=== PATIENT | male | born 1985 | race African-American/Black ===

== ENCOUNTER 2019-11-12 08:55 | Inpatient (IN) | payer OTHER ==
[2019-11-12 09:39] LABS: #Basophils 0.1 thou/uL (0.0-0.2); #Lymphocytes 1.7 thou/uL (1.20-3.40); #Monocytes 0.8 thou/uL (0.11-0.59); #Neutrophils 3.7 thou/uL (1.40-6.50); %Basophils 0.9 % (0.0-1.0); %Eosinophils 0.3 % (0.0-10.0); %Lymphocytes 27.6 % (21.0-51.0); %Monocytes 12.5 % (0.0-10.0); %Neutrophils 58.7 % (42.0-75.0); Hemoglobin 14.9 g/dL (14.0-18.0); Mean Corpuscular HGB CONC 32.8 g/dL (32.0-36.0); Mean Corpuscular Hemoglobin 30.9 pg (27.0-31.0); Mean Corpuscular Volume 94.2 fL (78.0-98.0); Mean Platelet Volume 8.4 fL (7.4-10.4); Platelet Count 181 thou/uL (130-400); RBC Distribution Width 11.6 % (11.5-14.5); Red Blood Cell (RBC) Count 4.83 mill/uL (4.70-6.10); White Blood Cell (WBC) Count 6.3 thou/uL (4.8-10.8)
[2019-11-12 10:02] LABS: ALT (SGPT) 26 U/L (8-55); AST (SGOT) 59 U/L (5-34); Acetaminophen Less than 6.0 mcg/mL (10.0-30.0); Albumin 4.7 g/dL (3.5-5.0); Alcohol Less than 10 mg/dL (Less than 10); Alkaline Phosphatase 68 U/L (40-110); Anion Gap 13 mmol/L (10-20); BUN (Urea Nitrogen) 16 mg/dL (8.9-20.6); Bilirubin, Total 0.7 mg/dL (0.2-1.2); CK (CPK) 3124 U/L (30-200); Calc. Creatinine Clearance 0 mL/min (70-130); Calcium 9.5 mg/dL (7.8-10.44); Carbon Dioxide 27 mmol/L (22-29); Chloride 104 mmol/L (98-107); Estimated GFR-MDRD 83; Globulin 2.9 g/dL (2.4-3.5); Glucose 88 mg/dL (70-105); Potassium 3.9 mmol/L (3.5-5.1); Protein, Total 7.6 g/dL (6.0-8.3); Salicylate Less than 8.0 mg/dL (15.0-30.0); Sodium 140 mmol/L (136-145)
[2019-11-12 12:38] LABS: Bacteria/HPF None Seen HPF (None Seen); Bilirubin Negative (Negative); Blood, Urine Negative (Negative); Clarity Clear (Clear); Glucose, Urine (Dipstick) Normal (Negative); Ketone, Urine 40 mg/dL (Negative); Leukocyte Negative Leu/uL (Negative); Nitrite Negative (Negative); Protein, Urine (Dipstick) 30 mg/dL (Neg-Trace); RBC/HPF 0-3 HPF (0-3); Specific Gravity, Urine 1.035 (1.002-1.036); Squamous Epithelial 0-3 HPF (0-3); WBC/HPF 0-3 HPF (0-3)
[2019-11-12 12:46] LABS: Amphetamine Not Detected (NotDetected); Barbiturates Screen Not Detected (NotDetected); Benzodiazepine Screen Not Detected (NotDetected); Cocaine Metabolite Screen Not Detected (NotDetected); Medtox Control Line Valid? VALID (VALID); Medtox Reader # READER 1; Methadone Not Detected (NotDetected); Methamphetamine Not Detected (NotDetected); Opiate Screen Not Detected (NotDetected); Oxycodone Screen Not Detected (NotDetected); Phencyclidine (PCP) Not Detected (NotDetected); THC/Cannabinoid Screen Not Detected (NotDetected); Tricyclic Screen Not Detected (NotDetected)
[2019-11-12] MEDS ORDERED: Ibuprofen 200 MG TAB ONE (15:12)
[2019-11-12] MEDS ORDERED: Ibuprofen 100 MG/5 ML UDCUP ONE (15:12)
[2019-11-12 22:27] LABS: Anion Gap 8 mmol/L (10-20); BUN (Urea Nitrogen) 13 mg/dL (8.9-20.6); CK (CPK) 3196 U/L (30-200); Calc. Creatinine Clearance 0 mL/min (70-130); Calcium 7.5 mg/dL (7.8-10.44); Carbon Dioxide 25 mmol/L (22-29); Chloride 112 mmol/L (98-107); Estimated GFR-MDRD Greater than 90; Glucose 124 mg/dL (70-105); Potassium 4.4 mmol/L (3.5-5.1); Sodium 141 mmol/L (136-145)
--- NOTE | 2019-11-12 23:52 | HP ---
REASON FOR ADMISSION: Confusion. HISTORY OF PRESENT ILLNESS: This is a 34-year-old male patient who has history of psychiatric illness, was found erratically shopping at [employer]. He appears to be confused. He was also shoplifting. He was brought to the emergency room for medical evaluation and attempt was made to contact [facility] to take him, but his labs were found to be abnormal. His CK was elevated. He is being admitted for further monitoring. The patient is currently in the ER and he appears to be very comfortable. He knows the year. He knows that he is in the hospital, but then he answers more specific questions somewhat inappropriately, but he denies any distress. No chest pain. No shortness of breath. PAST MEDICAL HISTORY: As per records, positive for psychiatric illness, but otherwise he is a very poor historian and unable to give me more information. SOCIAL HISTORY: Documented that he drinks on a daily basis, but does not use drugs. He does smoke cigarettes. FAMILY HISTORY: I am to obtain due to his poor being a poor historian. REVIEW OF SYSTEMS: Unable to obtain due to him being a poor historian. PHYSICAL EXAMINATION: GENERAL: Awake, alert, oriented, does not appear in distress. VITAL SIGNS: His blood pressure is 128/79, heart rate of 90, temperature is 98.9, saturating 98% on room air. HEENT: Head is nontraumatic, normocephalic. Pupils equal, reactive. Extraocular movements intact. Nonicteric sclerae. Well-injected conjunctivae. Oral mucosa normal. Nasal mucosa normal. NECK: Supple. No adenopathy. No murmur. Thyroid is not palpable. Trachea is midline. No supraclavicular adenopathy. HEART: S1, S2 regular. No murmur. No gallops. No friction rubs. No displacement of PMI. LUNGS: Clear to auscultation bilaterally. No wheezes, rhonchi, or crackles. ABDOMEN: Bowel sounds are positive. Nontender abdomen. No hepatosplenomegaly. EXTREMITIES: No lower extremity edema. No cyanosis. NEUROLOGIC: Cranial nerves 2-12 within normal limits. Normal motor function. Normal sensory function. LABORATORY DATA: Blood work shows WBC of 6.3, hemoglobin 14.9, platelets 181. Sodium 141, potassium of 4.4, bicarb of 25, creatinine of 1. CK is 3196. Toxicology screen shows negative for Tylenol and salicylates. Plasma alcohol level less than 10. ASSESSMENT/PLAN: This is a 34-year-old male patient who is presenting with confusion, found to have rhabdo. He did receive a total of 6 L of normal saline in the ER, but his CK continued to increase. We will admit him to [facility] and we will continue with aggressive fluid hydration and recheck his CK in the morning. DVT prophylaxis with SCDs. Job ID: [id number]
[2019-11-13 02:00] VITALS: BMI 33.0
[2019-11-13] MEDS: Sodium Chloride 0.9% 1,000 ML IV SCH ×6 (02:34→22:01)
[2019-11-13 06:28] LABS: #Eosinphils 0.1 thou/uL (0.0-0.7); #Lymphocytes 1.8 thou/uL (1.20-3.40); #Monocytes 0.4 thou/uL (0.11-0.59); #Neutrophils 1.4 thou/uL (1.40-6.50); %Basophils 0.9 % (0.0-1.0); %Eosinophils 1.9 % (0.0-10.0); %Lymphocytes 48.8 % (21.0-51.0); %Monocytes 9.8 % (0.0-10.0); %Neutrophils 38.6 % (42.0-75.0); Hemoglobin 13.4 g/dL (14.0-18.0); Mean Corpuscular HGB CONC 32.7 g/dL (32.0-36.0); Mean Corpuscular Hemoglobin 31.3 pg (27.0-31.0); Mean Corpuscular Volume 95.6 fL (78.0-98.0); Platelet Count 140 thou/uL (130-400); RBC Distribution Width 11.7 % (11.5-14.5); Red Blood Cell (RBC) Count 4.28 mill/uL (4.70-6.10); White Blood Cell (WBC) Count 3.7 thou/uL (4.8-10.8)
[2019-11-13 06:50] LABS: Anion Gap 9 mmol/L (10-20); BUN (Urea Nitrogen) 9 mg/dL (8.9-20.6); CK (CPK) 3032 U/L (30-200); Calc. Creatinine Clearance 200 mL/min (70-130); Calcium 7.7 mg/dL (7.8-10.44); Carbon Dioxide 24 mmol/L (22-29); Chloride 111 mmol/L (98-107); Estimated GFR-MDRD Greater than 90; Glucose 92 mg/dL (70-105); Potassium 4.3 mmol/L (3.5-5.1); Sodium 140 mmol/L (136-145)
--- NOTE | 2019-11-13 16:58 | PDOC.HOSPP ---
- Subjective Encounter Date: 11/13/19 Encounter Time: 10:00 Subjective: The patient complains of pain in both of his thighs. He is able to walk. He denies hallucinations, suicidal , homicidal ideation. He states that he has been hospitalized for weeks, and did not like the effects of the medications he was prescribed because they were making him feel off, so he stopped all of his medication. He is not interested in going back on any medications currently He denies any falls - Objective Vital Signs & Weight: Vital Signs (12 hours) Temp Pulse Resp BP Pulse Ox 11/13/19 16:04 98.1 F 67 18 126/78 100 11/13/19 11:03 97.6 F 60 20 113/71 99 11/13/19 08:04 97.7 F 63 18 103/68 97 Weight Weight 243 lb 14.4 oz I&O: 11/12/19 11/13/19 11/14/19 06:59 06:59 06:59 Intake Total 980 480 Balance 980 480 Result Diagrams: 11/13/19 06:17 11/13/19 06:17 Hospitalist ROS - Review of Systems Constitutional: denies: fever, chills - Exam General Appearance: NAD, awake alert Eye: PERRL, anicteric sclera ENT: normocephalic atraumatic, no oropharyngeal lesions Neck: no JVD Heart: RRR, no murmur, no gallops, no rubs Respiratory: CTAB, no wheezes, no rales, no ronchi Gastrointestinal: soft, non-tender, non-distended, normal bowel sounds Extremities: no cyanosis, no clubbing, no edema Skin: normal turgor, no lesions, no rashes Hosp A/P - Plan This is a 34 year old male who was brought in due to confusion while shopping at [employer]. Rhabdomyolysis - CK level still > 3000. Will increase IV fluids to 170 an hour Vitamin D deficiency -will start vitamin D supplementation Unspecified psychiatric illness - not on any medications DVT prophylaxis: SCDS Code status: full code
[2019-11-13] MEDS: Heparin 5,000 UNITS/ML VIAL SC SCH (20:41)
[2019-11-14] MEDS: Sodium Chloride 0.9% 1,000 ML IV SCH ×4 (04:37→20:39)
[2019-11-14] MEDS: Heparin 5,000 UNITS/ML VIAL SC SCH ×3 (08:02→20:36)
[2019-11-14] MEDS: Cholecalciferol 1,000 UNITS (25 MCG) TAB PO SCH (08:02)
[2019-11-14 12:29] LABS: Hemoglobin 12.9 g/dL (14.0-18.0); Mean Corpuscular HGB CONC 32.6 g/dL (32.0-36.0); Mean Corpuscular Hemoglobin 31.4 pg (27.0-31.0); Mean Corpuscular Volume 96.1 fL (78.0-98.0); Mean Platelet Volume 8.2 fL (7.4-10.4); Platelet Count 129 thou/uL (130-400); RBC Distribution Width 11.5 % (11.5-14.5); Red Blood Cell (RBC) Count 4.13 mill/uL (4.70-6.10); White Blood Cell (WBC) Count 4.3 thou/uL (4.8-10.8)
--- NOTE | 2019-11-14 17:29 | PDOC.HOSPP ---
- Subjective Subjective: THe patient is doing well, no cramps in legs at rest or while walking. 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 to get his psych meds straightened out - Objective Vital Signs & Weight: Vital Signs (12 hours) Temp Pulse Resp BP Pulse Ox 11/14/19 08:00 100 11/14/19 07:47 98.8 F 69 14 125/81 100 Weight Weight 243 lb 14.4 oz I&O: 11/13/19 11/14/19 11/15/19 06:59 06:59 06:59 Intake Total 443 238 9029 Output Total 950 Balance 193 735 8602 Result Diagrams: 11/14/19 12:13 11/13/19 06:17 Hospitalist ROS - Review of Systems Constitutional: denies: fever, chills - Medication Medications: Active Medications Generic Name Dose Route Start Last Admin Trade Name Napoleon PRN Reason Stop Dose Admin Cholecalciferol 1,000 mcg 11/14/19 09:00 11/14/19 08:02 Vitamin D3 PO 1,000 mcg DAILY ROSIE Administration Heparin Sodium (Porcine) 5,000 units 11/13/19 21:00 11/14/19 14:32 Heparin SC 5,000 units TID ROSIE Administration Sodium Chloride 1,000 mls @ 175 mls/hr 11/13/19 16:56 11/14/19 17:18 Normal Saline 0.9% IV 1,000 mls .[id number] ROSIE Administration - Exam General Appearance: NAD, awake alert Eye: PERRL, anicteric sclera ENT: normocephalic atraumatic, no oropharyngeal lesions Neck: no JVD Heart: RRR, no murmur, no gallops, no rubs Respiratory: CTAB, no wheezes, no rales, no ronchi Gastrointestinal: soft, non-tender, non-distended, normal bowel sounds Extremities: no cyanosis, no clubbing, no edema Hosp A/P - Plan This is a 34 year old male who was brought in due to confusion while shopping at [employer]. Rhabdomyolysis - CK level improved to 1800, on IV fluid 175. Repeat CK trending up, will increase fluids to 200/hour Vitamin D deficiency - continue vitamin D supplementation Unspecified psychiatric illness - not on any medications - [facility] consult tomorrow Dispo: MR eval if CK improves DVT prophylaxis: SCDS Code status: full code
[2019-11-15] MEDS: Sodium Chloride 0.9% 1,000 ML IV SCH ×4 (03:42→15:48)
[2019-11-15 06:39] LABS: Mean Corpuscular HGB CONC 32.8 g/dL (32.0-36.0); Mean Corpuscular Hemoglobin 31.1 pg (27.0-31.0); Mean Corpuscular Volume 94.7 fL (78.0-98.0); Mean Platelet Volume 8.6 fL (7.4-10.4); Platelet Count 138 thou/uL (130-400); RBC Distribution Width 11.5 % (11.5-14.5); Red Blood Cell (RBC) Count 4.19 mill/uL (4.70-6.10); White Blood Cell (WBC) Count 3.3 thou/uL (4.8-10.8)
[2019-11-15 07:10] VITALS: BP 121/80; TEMP 98.1
[2019-11-15] MEDS: Heparin 5,000 UNITS/ML VIAL SC SCH ×2 (09:07→15:46)
[2019-11-15] MEDS: Cholecalciferol 1,000 UNITS (25 MCG) TAB PO SCH (09:08)
--- NOTE | 2019-11-15 11:08 | PDOC.HOSPP ---
- Subjective Encounter Date: 11/15/19 Subjective: No new complains - Objective Vital Signs & Weight: Vital Signs (12 hours) Temp Pulse Resp BP Pulse Ox 11/15/19 07:08 98.1 F 62 15 121/80 100 Weight Weight 243 lb 14.4 oz I&O: 11/14/19 11/15/19 11/16/19 06:59 06:59 06:59 Intake Total 720 5150 Output Total 950 Balance 720 4200 Result Diagrams: 11/15/19 06:20 11/13/19 06:17 Hospitalist ROS - Medication Medications: Active Medications Generic Name Dose Route Start Last Admin Trade Name Freq PRN Reason Stop Dose Admin Cholecalciferol 1,000 mcg 11/14/19 09:00 11/15/19 09:08 Vitamin D3 PO 1,000 units DAILY ROSIE Administration Heparin Sodium (Porcine) 5,000 units 11/13/19 21:00 11/15/19 09:07 Heparin SC 5,000 units TID ROSIE Administration Sodium Chloride 1,000 mls @ 175 mls/hr 11/13/19 16:56 11/15/19 09:08 Normal Saline 0.9% IV Not Given .[id number] ROSIE - Exam General Appearance: awake alert ENT: normocephalic atraumatic Neck: supple, no JVD Respiratory: normal chest expansion, no tachypnea Extremities: no cyanosis Neurological: cranial nerve grossly intact, no focal deficits Hosp A/P - Plan Rhabdomyolysis CK improved to 1100. The patient is cleared to be discharged once [facility] evaluation is done. Vitamin D deficiency - continue vitamin D supplementation Unspecified psychiatric illness - not on any medications - [facility] consult Dispo: [facility] eval if CK improves DVT prophylaxis: SCDS Code status: full code
[2019-11-15] MEDS ORDERED: Cyanocobalamin (Vitamin B-12) 1,000 MCG TAB PO SCH (13:15)
[2019-11-15] MEDS ORDERED: Folic Acid 1 MG TAB PO SCH (13:15)
--- NOTE | 2019-11-15 20:32 | DIS ---
DATE OF ADMISSION: 11/13/2019 DATE OF DISCHARGE: 11/15/2019 DISCHARGE DIAGNOSES: 1. Rhabdomyolysis. 2. Vitamin D deficiency. 3. Nonspecified psychiatric illness. DISCHARGE MEDICATIONS: No new discharge medications. HISTORY OF PRESENT ILLNESS AND HOSPITAL COURSE: The patient is a 34-year-old male with history of psychiatric illness, who was found to be behaving erratically [place] shopping [place]. He was confused and was shoplifting. He was brought to the emergency department where initial evaluation revealed evidence of rhabdomyolysis with elevated CK levels. He was otherwise not in any acute distress. He was brought to the hospital and managed with IV fluids. He was not given any psychotic medications. Once his condition stabilized, [facility] evaluated the patient and established a plan for followup. He does not appear to be at any risk for suicide at this moment. Job ID: [id number]
[2019-11-16] MEDS ORDERED: Folic Acid 1 MG TAB PO SCH (09:00)
[2019-11-16] MEDS ORDERED: Cyanocobalamin (Vitamin B-12) 1,000 MCG TAB PO SCH (09:00)
--- NOTE | 2019-11-17 17:37 | PQF ---
CLINICAL DOCUMENTATION CLARIFICATION FORM Patient Name: COLE BUCIO Date of : 1985 Account: [id number] Admit Date: 11/13/2019 Discharge Date: 11/15/2019 Facility: [facility] - [place] [address] Dr. Hurd Date: 11-17-19 Please exercise your independent, professional judgment in responding to the clarification form. Clinical indicators are provided on the bottom of this form for your review. Please check appropriate box(es): [ > ] Acute Metabolic Encephalopathy due to Rhabdomyolysis [ ] Acute Psychosis due to unspecified psychiatric illness [ ] Other diagnosis [ ] Unable to determine For continuity of documentation, please document condition throughout progress notes and discharge summary. Thank You. To be completed by CDI/Coding staff for physician review: CLINICAL INDICATORS - SIGNS / SYMPTOMS / LABS / RESULTS AND LOCATION IN EMR ED: Rhabdomyolysis; acute psychosis Only oriented to name; Pt is consistently talking and not making any sense. [employer] ideas Labs: Creatine Kinase 7-8 @ 0931 3124 7-8 @ 1608 3128 7-8 @ 2138 3196 7-9 @ 0617 3032 7-10 @ 1213 1685 7-10 @ 1638 1732 7-11 @ 0620 1101 7-9 H&P (Rouhana): appears to be confused; PMH: psychiatric illness; Drinks on daily basis RISK FACTORS / RESULTS AND LOCATION IN EMR 7-8 H&P (Rouhana): presenting with confusion, found to have rhabdo 7-9 PN (Sarah): unspecified psychiatric illness TREATMENTS / RESULTS AND LOCATION IN EMR 7-9 H&P (Rouhana): Received a total of 6L NS in ER, but his CK continued to increase. Admit to Med Surg Continue with aggressive fluid hydration Check CK in morning CDS Signature: Jeannine Hill RN, CCDS Phone #: [phone] Date: 11-17-19 This is a permanent part of the Medical Record [facility]
== END 2019-11-15 17:57 | disposition home or self-care (01) | DRG 557 ==
LOC: ERS 08:55 → T4-B 11-13 01:48
PROVIDERS: ADMIT Internal Medicine; ATTEND Internal Medicine
DX: M62.82 Rhabdomyolysis (principal); G93.41 Metabolic encephalopathy; E55.9 Vitamin D deficiency, unspecified; F17.210 Nicotine dependence, cigarettes, uncomplicated
CPT/HCPCS: 36415; 80048; 80053; 80306; 80307; 81003; 81015; 82306; 82550; 82607; 82746; 83735; 84443; 85025; 85027; 96360; 96361; J1644